=== PATIENT | male | born 1950 ===

== ENCOUNTER 2018-08-28 06:09 | Day surgery (SDC) | payer MEDICARE ==
[2018-08-27 09:35] VITALS: BMI 28.0
--- NOTE | 2018-08-28 07:58 | CP.SDSHP ---
Same Day Surgery H & P - History Proposed Procedure: EGD Pre-Op Diagnosis: SEE NOTES - Previous Medical/Surgical History Misc: Other Pain: 4.Moderate Pain - Allergies Allergies: Allergies No Known Allergies Allergy (Verified 10/08/14 11:00) - Physical Exam General Appearance: N Vital Signs: Vital Signs 08/28/18 08/28/18 06:29 07:55 Temperature 98.7 F 98.7 F Pulse Rate 67 67 Respiratory 19 19 Rate Blood Pressure 107/68 107/68 O2 Sat by Pulse 99 99 Oximetry Mental Status: Alert & Oriented x3 Neuro: WNL Heart: WNL Lungs: WNL GI: Other - {Optional Preform as Required} Breast: WNL Abdomen: Other Rectal: Other Integument: WNL : Other Ortho: WNL ENT: WNL - Impression Pt. Evaluated Today:Candidate for Anesthesia & Procedure: Yes - Date & Time Time: 07:58 Short Stay Discharge - Short Stay Discharge Admitting Diagnosis/Reason for Visit: FUNCTIONAL DYSPEPSIA Disposition: HOME/ ROUTINE
[2018-08-28] MEDS ORDERED: Belladonna-Phenobarbital PO STA (08:00)
[2018-08-28] MEDS ORDERED: Propofol 10 mg/ml Inj (20 ML) ONE (08:02)
[2018-08-28 08:27] VITALS: TEMP 97.4
[2018-08-28 09:10] VITALS: BP 110/59; PULSE 57; RESP 18; O2SAT 98
== END 2018-08-28 09:05 | disposition home or self-care (01) ==
LOC: C.ENDO 06:09
PROVIDERS: ATTEND Specialist
DX: K29.50 Unspecified chronic gastritis without bleeding (principal); K29.80 Duodenitis without bleeding; K44.9 Diaphragmatic hernia without obstruction or gangrene
CPT/HCPCS: 43239; 88305; 88342; J2704